=== PATIENT | female | born 1995 | race Caucasian/White ===

== ENCOUNTER 2018-07-03 11:35 | Emergency (ER) | payer BC ==
--- NOTE | 2018-07-03 11:55 | ED ---
Dizziness - HPI Summary HPI Summary: The patient is a 22 y/o F presenting to [facility] accompanied by significant other with a chief complaint of dizziness and mild confusion this morning. She reports that she's been having gradually worsening symptoms of autoimmune disease after being diagnosed with Raynaud's Syndrome a month ago based on abnormal white count per bloodwork by PCP. She notes difficulty with memorizing , collecting information, and recognizing situations, such as why she's in a certain place or while driving, numbness and tingling in the BLE, back and hip pain, anterior chest pain, and visual floaters. Her pain is currently rated 6/ 10 in severity. She is unable to get to a pest controller assistant until the end of August. She has hx of ADHD that is managed by prescribed Vyvanse, and surgical hx of right ankle surgery. FHx of autoimmune on maternal side and mental health on paternal side. - History Of Current Complaint Chief Complaint: EDDizziness Stated Complaint: CHEST PAIN, TENDER TO TOUCH PER PT Time Seen by Provider: 07/03/18 11:44 Hx Obtained From: Patient Onset/Duration: Gradually Timing: Hours - autoimmune symptoms started a few weeks ago but worsened today Severity Initially: Mild Severity Currently: Moderate Aggravating Factor(s): Nothing Alleviating Factor(s): Nothing Associated Signs And Symptoms: Positive: Visual Changes - floaters, Other: - confusion and difficulty with memorizing, collecting information, and recognizing situations, such as why she's in a certain place or while driving, numbness and tingling in the BLE, back and hip pain, anterior chest pain - Allergies/Home Medications Allergies/Adverse Reactions: Allergies Allergy/AdvReac Type Severity Reaction Status Date / Time metoclopramide [From Reglan] Allergy Altered Verified 07/03/18 11:43 Mental Status PMH/Surg Hx/FS Hx/Imm Hx Endocrine/Hematology History: Reports: Autoimmune Disease - Raynaud's syndrome Respiratory History: Denies: Hx Asthma Sensory History: Denies: Hx Deafness Opthamlomology History: Denies: Hx Legally Blind EENT History: Denies: Hx Deafness - Surgical History Surgery Procedure, Year, and Place: right ankle surgery Infectious Disease History: No Infectious Disease History: Denies: Traveled Outside the [place] in Last 30 Days - Family History Known Family History: Positive: Other - mental health on paternal side, autoimmune on maternal side - Social History Occupation: Student Alcohol Use: Occasionally Hx Substance Use: No Substance Use Type: Reports: None Hx Tobacco Use: No Smoking Status (MU): Never Smoked Tobacco Review of Systems Positive: Other - increased floaters Positive: Chest Pain - across the anterior chest, pain with deep breaths Positive: Other - pain in back and hips Neurological: Other - dizziness, confusion and difficulty with memories, collecting information, and recognition of situations Positive: Numbness - and tingling in BLE All Other Systems Reviewed And Are Negative: Yes Physical Exam - Summary Physical Exam Summary: VITAL SIGNS: Reviewed. GENERAL: Patient is a well-developed and nourished (MALE OR FEMALE) who is lying comfortable in the stretcher. Patient is not in any acute respiratory distress. HEAD AND FACE: No signs of trauma. No ecchymosis, hematomas or skull depressions. No sinus tenderness. EYES: PERRLA, EOMI x 2, No injected conjunctiva, no nystagmus. EARS: Hearing grossly intact. Ear canals and tympanic membranes are within normal limits. MOUTH: Oropharynx within normal limits. NECK: Supple, trachea is midline, no adenopathy, no JVD, no carotid bruit, no c- spine tenderness, neck with full ROM. CHEST: Symmetric, tenderness with ripples of chest LUNGS: Clear to auscultation bilaterally. No wheezing or crackles. CVS: Regular rate and rhythm, S1 and S2 present, no murmurs or gallops appreciated. ABDOMEN: Soft, non-tender. No signs of distention. No rebound no guarding, and no masses palpated. Bowel sounds are normal. EXTREMITIES: FROM in all major joints, no edema, no cyanosis or clubbing. NEURO: Alert and oriented x 3. No acute neurological deficits. Speech is normal and follows commands. SKIN: Dry and warm Triage Information Reviewed: Yes Vital Signs On Initial Exam: Initial Vitals Temp Pulse Resp BP Pulse Ox 98.8 F 93 16 130/84 100 07/03/18 11:38 07/03/18 11:38 07/03/18 11:38 07/03/18 11:38 07/03/18 11:38 Vital Signs Reviewed: Yes Diagnostics - Vital Signs Vital Signs Temp Pulse Resp BP Pulse Ox 07/03/18 11:38 98.8 F 93 16 130/84 100 - Laboratory Result Diagrams: 07/03/18 12:35 07/03/18 12:35 Lab Statement: Any lab studies that have been ordered have been reviewed, and results considered in the medical decision making process. - Radiology CXR Radiology Interpretation Completed By: Radiologist Summary of Radiographic Findings: No acute cardiopulmonary process. ED physician has reviewed this report. - EKG 12:07 Cardiac Rate: NL - 85 BPM EKG Rhythm: Sinus Rhythm Summary of EKG Findings: No ST elevations. Re-Evaluation - Re-Evaluation First Eval Re-Evaluation Time: 14:20 Change: Unchanged Comment: I spoke with the patient concerning lab and imaging results and discharge home. Dizzy Course/Dx - Course Assessment/Plan: Patient is a 22-year-old female who presents to the emergency department with chief complaint of having intermittent chest pain. Test results without any significant abnormality, troponin 0.00. EKG shows a normal sinus rhythm without any ST elevations. Chest x-ray impression: No acute pathology. In the ED course the patient continues to be asymptomatic. The patient doesnt have any complaints at this point. I discussed all the findings and test results with the patient. Lung exam before discharge: CTA B/L. Good air exchange. No wheezing or crackles heard. CVS: S1 and S2 present. No murmurs appreciated. Patient is alert and oriented x 3. Patient is hemodynamically stable. Patient will be discharged home with follow up PCP in the next 2-3 days. Patient was instructed to return to the emergency room immediately if any of the symptoms return or worsens. Plan of care was discussed with the patient and understands and agrees. All questions were answered at patient satisfaction. There were no further complaints or concerns. - Diagnoses Provider Diagnoses: Atypical chest pain Discharge - Sign-Out/Discharge Documenting (check all that apply): Patient Departure - Patient will be discharged home. Patient Received Moderate/Deep Sedation with Procedure: No - Discharge Plan Condition: Stable Disposition: HOME Patient Education Materials: Chest Pain (ED) Referrals: Nupur Beebe MD [Primary Care Provider] - 3 Days Additional Instructions: TRY TO GET AN EARLIER APPOINTMENT WITH A SUSTAINABILITY ENGINEER IF POSSIBLE. FOLLOW UP WITH YOUR PRIMARY CARE PROVIDER WITHIN 2-3 DAYS. RETURN TO THE ED FOR ANY WORSENING OR NEW SYMPTOMS. - Billing Disposition and Condition Condition: STABLE Disposition: Home - Attestation Statements Document Initiated by Scribe: Yes Documenting Scribe: Deb Leal Provider For Whom Scribe is Documenting (Include Credential): Dr. Kobi Hanks MD Scribe Attestation: I, Deb Leal, scribed for Dr. Kobi Hanks MD on 07/03/18 at 1524. Scribe Documentation Reviewed: Yes Provider Attestation: The documentation as recorded by the Deb lacey accurately reflects the service I personally performed and the decisions made by me, Dr. Kobi Hanks MD Status of Scribe Document: Ready
[2018-07-03 12:45] LABS: ABS Basophils 0.1 10^3/ul (0-0.2); ABS Eosinophils 0.1 10^3/ul (0-0.6); ABS Lymphocytes 1.6 10^3/ul (1.0-4.8); ABS Monocytes 0.6 10^3/ul (0-0.8); ABS Neutrophils 3.1 10^3/ul (1.5-7.7); ABS Nucleated RBC 0 10^3/ul; Eosinophil % 1.6 %; Hematocrit 40 % (33-41); Hemoglobin 13.6 g/dL (12.0-16.0); Lymphocyte % 30.3 %; Mean Corpuscular HGB Conc 34 g/dL (31-36); Mean Corpuscular Hemoglobin 32 pg (27-31); Mean Corpuscular Volume 92 fL (80-97); Mean Platelet Volume 7.2 fL (7.4-10.4); Nucleated Red Blood Cells % 0; Platelet Count 264 10^3/uL (150-450); Red Cell Distribution Width 13 % (10.5-15); White Blood Count 5.4 10^3/uL (3.5-10.8)
[2018-07-03 13:03] LABS: ALT 12 U/L (7-52); AST 15 U/L (13-39); Albumin 4.5 g/dL (3.2-5.2); Albumin/Globulin Ratio 2.1 (1-3); Alkaline Phosphatase 52 U/L (34-104); Anion Gap 6 mmol/L (2-11); BUN/Creatinine Ratio 16.2 (8-20); Blood Urea Nitrogen 12 mg/dL (6-24); CO2 Carbon Dioxide 28 mmol/L (22-32); Calcium 9.1 mg/dL (8.6-10.3); Chloride 103 mmol/L (101-111); Creatine Kinase 65 U/L (10-223); EGFR African American 121.1 (>60); EGFR Non-African American 100.1 (>60); Globulin 2.1 g/dL (2-4); Glucose 89 mg/dL (70-100); Potassium 4.1 mmol/L (3.5-5.0); Sodium 137 mmol/L (135-145); Total Protein 6.6 g/dL (6.4-8.9)
[2018-07-03 13:09] LABS: HCG Pregnancy < 0.60 mIU/mL
[2018-07-03 14:15] VITALS: BP 112/84
== END 2018-07-03 14:27 | disposition home or self-care (01) ==
LOC: ED 11:35
DX: R07.89 Other chest pain (principal); R42 Dizziness and giddiness; R20.0 Anesthesia of skin; H43.399 Other vitreous opacities, unspecified eye; R41.0 Disorientation, unspecified
CPT/HCPCS: 36415; 71046; 80053; 82550; 83605; 84484; 84702; 85025; 93005; 99284

== ENCOUNTER 2019-01-31 08:14 | Emergency (ER) | payer BC ==
[2019-01-31] MEDS ORDERED: NS 0.9% 1000 ML** 1,000 ML IV ONE (08:56)
[2019-01-31] MEDS ORDERED: Ondansetron INJ* 2 MG/ML VIAL IV ONE (08:56)
[2019-01-31 09:12] LABS: ABS Basophils 0.1 10^3/ul (0-0.2); ABS Eosinophils 0.1 10^3/ul (0-0.6); ABS Lymphocytes 1.4 10^3/ul (1.0-4.8); ABS Monocytes 0.3 10^3/ul (0-0.8); ABS Neutrophils 1.7 10^3/ul (1.5-7.7); Eosinophil % 2.2 %; Hematocrit 45 % (35-47); Hemoglobin 15.5 g/dL (12.0-16.0); Lymphocyte % 39.9 %; Mean Corpuscular HGB Conc 35 g/dL (31-36); Mean Corpuscular Hemoglobin 31 pg (27-31); Mean Corpuscular Volume 91 fL (80-97); Mean Platelet Volume 7.8 fL (7.4-10.4); Nucleated Red Blood Cells % 0.1; Platelet Count 264 10^3/uL (150-450); Red Blood Count 4.94 10^6 /uL (3.70-4.87); Red Cell Distribution Width 13 % (10-15); White Blood Count 3.6 10^3/uL (3.5-10.8)
[2019-01-31 09:28] LABS: ALT 24 U/L (7-52); AST 24 U/L (13-39); Albumin/Globulin Ratio 2.1 (1-3); Alkaline Phosphatase 55 U/L (34-104); Anion Gap 7 mmol/L (2-11); Blood Urea Nitrogen 13 mg/dL (6-24); CO2 Carbon Dioxide 29 mmol/L (22-32); Calcium 9.1 mg/dL (8.6-10.3); Chloride 105 mmol/L (101-111); EGFR Non-African American 89.3 (>60); Globulin 2.4 g/dL (2-4); Glucose 83 mg/dL (70-100); Potassium 4.1 mmol/L (3.5-5.0); Sodium 141 mmol/L (135-145); Total Protein 7.4 g/dL (6.4-8.9)
[2019-01-31 09:35] LABS: HCG Pregnancy < 0.60 mIU/mL
[2019-01-31 11:41] VITALS: BP 107/72
--- NOTE | 2019-01-31 17:16 | ED ---
Nausea/Vomiting/Diarrhea HPI - HPI Summary HPI Summary: Patient is a 23-year-old female who presents emergency department for a few episodes of nausea vomiting that started last night. Patient notes she did to alcoholic drink was last night. She notes mild abdominal pain. Denies fever, cough, sore throat, urinary symptoms, diarrhea. Patient is concerned. She has been having issues with eating and nutrition the patient is concerned she may be malnourished from vomiting. Symptoms are mild to moderate in severity. No current modifying factors. - History of Current Complaint Chief Complaint: EDNauseaVomitDiarrh Stated Complaint: EXCESSIVE WT LOSS / VOMITING PER PT Time Seen by Provider: 01/31/19 08:34 Hx Obtained From: Patient Pain Intensity: 0 Pain Scale Used: 0-10 Numeric - Allergies/Home Medications Allergies/Adverse Reactions: Allergies Allergy/AdvReac Type Severity Reaction Status Date / Time metoclopramide [From Reglan] Allergy Altered Verified 01/31/19 08:20 Mental Status PMH/Surg Hx/FS Hx/Imm Hx Previously Healthy: Yes Endocrine/Hematology History: Denies: Hx Diabetes Cardiovascular History: Denies: Hx Hypertension, Hx Pacemaker/ICD Respiratory History: Denies: Hx Asthma History: Denies: Hx Renal Disease Sensory History: Denies: Hx Legally Blind, Hx Deafness, Hx Hearing Aid Opthamlomology History: Denies: Hx Legally Blind Psychiatric History: Denies: Hx Panic Disorder - Surgical History Surgery Procedure, Year, and Place: right ankle surgery - Immunization History Date of Tetanus Vaccine: UTD Date of Influenza Vaccine: UTD Infectious Disease History: No Infectious Disease History: Denies: Traveled Outside the [place] in Last 30 Days - Family History Known Family History: Positive: Other - mental health on paternal side, autoimmune on maternal side, Non-Contributory - Social History Occupation: Student Lives: Dormitory/Roommates Alcohol Use: Occasionally Hx Substance Use: No Substance Use Type: Reports: None Hx Tobacco Use: No Smoking Status (MU): Never Smoked Tobacco Review of Systems Constitutional: Negative Negative: Fever Cardiovascular: Negative Respiratory: Negative Positive: Vomiting, Nausea. Negative: Abdominal Pain, Diarrhea Genitourinary: Negative Negative: dysuria Neurological: Negative All Other Systems Reviewed And Are Negative: Yes Physical Exam Triage Information Reviewed: Yes Vital Signs On Initial Exam: Initial Vitals Temp Pulse Resp BP Pulse Ox 97.3 F 98 16 130/85 100 10/13/19 08:17 01/31/19 08:17 01/31/19 08:17 01/31/19 08:17 01/31/19 08:17 Vital Signs Reviewed: Yes Appearance: Positive: Well-Appearing - Pt. sitting up in bed in NAD. Skin: Positive: Warm, Dry Head/Face: Positive: Normal Head/Face Inspection Eyes: Positive: Normal, EOMI Neck: Positive: Supple Respiratory/Lung Sounds: Positive: Clear to Auscultation, Breath Sounds Present Cardiovascular: Positive: Normal, RRR Abdomen Description: Positive: Nontender, Soft. Negative: CVA Tenderness (R), CVA Tenderness (L) Musculoskeletal: Positive: Normal, Strength/ROM Intact Neurological: Positive: Normal, CN Intact II-III Psychiatric: Positive: Affect/Mood Appropriate Procedures - Sedation Patient Received Moderate/Deep Sedation with Procedure: No Diagnostics - Vital Signs Vital Signs Temp Pulse Resp BP Pulse Ox 01/31/19 11:39 97.3 F 76 16 107/72 100 01/31/19 08:17 97.3 F 98 16 130/85 100 - Laboratory Lab Results: Lab Results 01/31/19 01/31/19 Range/Units 09:06 09:06 WBC 3.6 (3.5-10.8) 10^3/uL RBC 4.94 H (3.70-4.87) 10^6 /uL Hgb 15.5 (12.0-16.0) g/dL Hct 45 (35-47) % MCV 91 (80-97) fL MCH 31 (27-31) pg MCHC 35 (31-36) g/dL RDW 13 (10-15) % Plt Count 264 (150-450) 10^3/uL MPV 7.8 (7.4-10.4) fL Neut % (Auto) 47.9 % Lymph % (Auto) 39.9 % [place] % (Auto) 8.5 % Eos % (Auto) 2.2 % Baso % (Auto) 1.5 % Absolute Neuts (auto) 1.7 (1.5-7.7) 10^3/ul Absolute Lymphs (auto) 1.4 (1.0-4.8) 10^3/ul Absolute Monos (auto) 0.3 (0-0.8) 10^3/ul Absolute Eos (auto) 0.1 (0-0.6) 10^3/ul Absolute Basos (auto) 0.1 (0-0.2) 10^3/ul Absolute Nucleated RBC 0.0 10^3/ul Nucleated RBC % 0.1 Sodium 141 (135-145) mmol/L Potassium 4.1 (3.5-5.0) mmol/L Chloride 105 (101-111) mmol/L Carbon Dioxide 29 (22-32) mmol/L Anion Gap 7 (2-11) mmol/L BUN 13 (6-24) mg/dL Creatinine 0.81 (0.51-0.95) mg/dL Est GFR ( Amer) 108.0 (>60) Est GFR (Non-Af Amer) 89.3 (>60) BUN/Creatinine Ratio 16.0 (8-20) Glucose 83 (70-100) mg/dL Calcium 9.1 (8.6-10.3) mg/dL Total Bilirubin 0.50 (0.2-1.0) mg/dL AST 24 (13-39) U/L ALT 24 (7-52) U/L Alkaline Phosphatase 55 (34-104) U/L Total Protein 7.4 (6.4-8.9) g/dL Albumin 5.0 (3.2-5.2) g/dL Globulin 2.4 (2-4) g/dL Albumin/Globulin Ratio 2.1 (1-3) Lipase 24 (11.0-82.0) U/L Beta HCG, Quant < 0.60 mIU/mL Result Diagrams: 01/31/19 09:06 01/31/19 09:06 Lab Statement: Any lab studies that have been ordered have been reviewed, and results considered in the medical decision making process. Naus/Vom/Diarrhea Course/Dx - Course Course Of Treatment: Patient with nausea and vomiting. She has benign abdominal exam. Patient was given IV fluids, Zofran. Blood work is unremarkable with normal electrolytes. Patient tolerating by mouth challenge. Results discussed. Patient will follow-up with PCP and return to the ER symptoms change or worsen. Patient understands and agrees with plan. - Differential Dx/Diagnosis Differential Diagnoses - Female: Appendicitis, Pancreatitis, Gastritis, Dehydration Provider Diagnosis: Nausea & vomiting Condition At Discharge: Improved Discharge ED - Sign-Out/Discharge Documenting (check all that apply): Patient Departure - Discharge Plan Condition: Improved Disposition: HOME Prescriptions: Ondansetron TAB* [Zofran 4 MG Tab*] 4 mg PO Q6H PRN #12 tab PRN Reason: Nausea Patient Education Materials: Acute Nausea and Vomiting (ED) Referrals: [facility] [Outside] No Primary Care Phys,NOPCP [Primary Care Provider] - Additional Instructions: Follow up with [facility] within 1-2 days if symptoms persist Zofran as needed Increase fluids [place] diet such as broth, toast, rice Return to ER if symptoms change or worsen - Billing Disposition and Condition Condition: IMPROVED Disposition: Home
== END 2019-01-31 11:38 | disposition home or self-care (01) ==
LOC: ED 08:14
DX: R11.2 Nausea with vomiting, unspecified (principal); Z88.8 Allergy status to other drugs, medicaments and biological substances
CPT/HCPCS: 36415; 80053; 83690; 84702; 85025; 96361; 96374; 99282; J2405